=== PATIENT | male | born 1965 | race Caucasian/White ===

== ENCOUNTER 2018-01-23 18:23 | Outpatient (REF) | payer OTHER, SELFPAY ==
[2018-01-23 19:14] LABS: Uric Acid 5.3 mg/dL (3.5-7.2)
== END 2018-01-23 18:43 ==
LOC: NCHCN 18:23
PROVIDERS: Visit Provider Nurse Practitioner Family
DX: M10.9 Gout, unspecified (principal)
CPT/HCPCS: 84550

== ENCOUNTER 2020-08-21 16:47 | Outpatient (REF) | payer OTHER, SELFPAY ==
[2020-08-23 13:07] LABS: COVID-19 RT-PCR UVMMC Result Negative (Negative)
== END 2020-08-21 16:48 | disposition home or self-care (01) ==
LOC: NCHCN 16:47
PROVIDERS: Visit Provider Family Medicine
DX: Z20.822 Contact with and (suspected) exposure to COVID-19 (principal)
CPT/HCPCS: U0003

== ENCOUNTER 2021-05-04 03:51 | Outpatient (CLI) | payer OTHER, SELFPAY ==
[2021-05-04 10:22] LABS: Source Nasal/Nares
[2021-05-04 13:23] LABS: COVID-19 PCR Negative (Negative)
== END 2021-05-04 03:52 | disposition home or self-care (01) ==
LOC: LBO 03:51
PROVIDERS: Visit Provider Surgery
DX: Z20.822 Contact with and (suspected) exposure to COVID-19 (principal)
CPT/HCPCS: 87635

== ENCOUNTER 2021-05-07 08:27 | Day surgery (SDC) | payer OTHER, SELFPAY ==
--- NOTE | 2021-05-07 06:43 | COLE_ITS ---
Colonoscopy Report Date of procedure: 05/07/21 Pre-op diagnosis general: colon cancer screening Post-op diagnosis procedure note: same Procedure: Colonoscopy Surgeon: Monica Keys Anesthesia Type: General:No Airway (Alla Stokes CRNA) Estimated blood loss (mL): 0 Pathology: none sent Complications: None Disposition: same day Indications: The patient is here for Colonoscopy pre-op. He has no family history of colon cancer. He has not had any bowel habit changes. -Discussed colonoscopy bowel prep as well as the procedure. Discussed possible complications of the procedure to include bleeding, pain, perforation, missed small lesion/polyp, sore throat, aspiration and adverse reaction to the medications. Questions were answered to patient?s satisfaction. No guarantees were implied or given. Prep: Miralax/Dulcolax Procedure Start Time: 10:31 Procedure End Time: 10:47 Retraction Time: 6 minutes Findings: Normal colonoscopy Procedure Description: After informed consent was obtained the patient was taken to the procedure room and placed in a left decubitous position. Monitors were applied and a time out was done. The patients name, date of , procedure, allergies to medications and metal in their body was reviewed. The patient was then sedated. Once sedated and comfortable a rectal exam was done. External exam was normal. Internal exam revealed a normal sphincter tone and no palpable masses. The prostate felt smooth. The scope was then introduced and retro-flexed. No internal hemorrhoids, polyps or masses were identified on retro-flexion. The scope was then advanced to the cecum without difficulty. The ileocecal vlave and appendiceal orifice were i dentified. The prep was adequate. The scope was then slowly retracted over 6 minutes back into the rectum. No polyps or diverticulosis noted. The scope was removed and the patient was woken up and taken back to Same day surgery in stable condition. The patient tolerated the procedure well and there were no immediate complications. Follow up: The patient should follow up in 10 years unless they develop changes in bowel habits or other new gastrointestinal complaints.
--- NOTE | 2021-05-07 06:45 | W.PM.DSUDISC ---
Discharge Plan Disposition Patient Disposition: HOME Condition: Good Discharge Details Reason For Visit: Colonoscopy Attending Provider: Monica Keys Primary Care Provider: Elvia Cadena Home Meds and New Rx's Prescriptions: Continued cholecalciferol (vitamin D3) 25 mcg (1,000 unit) capsule 25 mcg PO DAILY RF: 0 Discontinued polyethylene glycol 3350 17 gram/dose powder 238 g PO ONCE Qty: 238 RF: 0 bisacodyl [Dulcolax (bisacodyl)] 5 mg tablet,delayed release (DR/EC) 5 mg PO ONCE Qty: 4 RF: 0 Discharge Instructions Additional Instructions: Findings: Normal large intestine Follow up: 10 years Please call if you develop: fevers >101.5 Nausea or Vomiting Abdominal pain that is not transient Rectal bleeding that is more then a tbsp A hard abdomen and inability to pass gas DAY SURGERY UNIT POST ENDOSCOPY INSTRUCTIONS Instructions for everyone who is given Anesthesia: For your safety, please do the following for the next 24 Hours: a. Do not drive or operate dangerous equipment b. Do not drink alcohol beverages or use any recreational drugs for the first 24 hours or while taking pain medications. The medications in your body may have a reaction that can be dangerous. c. Do not make any important decisions or sign any important papers 1. Generally there are no restrictions on your activity after a day or so has gone by, but you may feel a bit fatigued for a few days. 2. After you arrive home you may have a light meal and return to a normal diet as you can tolerate it without feeling sick to your stomach. 3. After surgery, you may feel pain or discomfort. This should be only transient, but if it persists please contact your doctor. 4. If there are any questions regarding the findings of your procedure, please feel free to contact your doctor. 6. If you are unable to contact your doctor with a problem, contact the hospital at [phone]. 7. Continue all your regular medications unless directed otherwise. I understand the above instructions and have no questions. Signature of Patient or Responsible Adult Escort Date/Time Name of Responsible Adult Escort Signature of Nurse Date/Time Activity:: Activity as Tolerated Diet:: As Tolerated Discharge Orders Discharge Orders: Discharge Order (Routine); Ordered 05/07/21 Ordered By: Monica Keys
[2021-05-07 08:30] VITALS: BP 151/90; PULSE 77; RESP 16; TEMP 36.6; O2SAT 99
[2021-05-07] MEDS: Lactated Ringers 1,000 ML 80 ML IV (09:03)
--- NOTE | 2021-05-07 09:18 | W.ANESPRE ---
General Info Date of Service Date Performed: 05/07/21 Height: 6 ft Weight: 100.7 kg Body Mass Index (BMI): 30.1 Surgical Procedure: Operation Date: 05/07/21 10:35 Proposed Procedures Side Surgeon p Colonoscopy Monica Keys MD Meds Allergies and Home Medications Allergies Allergy/AdvReac Type Severity Reaction Status Date / Time No Known Allergies Allergy Unverified 05/07/21 08:41 Home Medication Medication Instructions Recorded bisacodyl 5 mg tablet,delayed 5 mg PO ONCE #4 tab 04/27/21 release cholecalciferol (vitamin D3) 25 25 mcg PO DAILY 04/27/21 mcg (1,000 unit) capsule polyethylene glycol 3350 17 238 g PO ONCE #238 g 04/27/21 gram/dose oral powder Current Visit Medications: Current Medications Generic Name Dose Route Start Last Admin Trade Name Freq PRN Reason Stop Dose Admin Hyoscyamine Sulfate 0.125 mg 05/07/21 06:45 Hyoscyamine 0.125 Mg Sl/Oral/Chew SL DIRECTED PRN Ringer's Solution 1,000 mls @ 80 mls/hr 05/07/21 06:00 05/07/21 09:03 IV 06/03/21 23:59 80 mls/hr INFUSION MARYANNE Administration IV Miscellaneous Supplies 1 each 05/07/21 06:00 Iv Access IV 06/03/21 23:59 DIRECTED MARYANNE Ondansetron HCl 4 mg 05/07/21 06:45 Ondansetron 4 Mg/2 Ml Vial IVP Q4H PRN PRN Nausea / Vomiting Sodium Chloride 0 ml 05/07/21 06:00 Normal Saline Flush 10 Ml Syr IV 06/03/21 23:59 PRN PRN Sodium Chloride 0 ml 05/07/21 06:00 Normal Saline 10 Ml Vial IJ 06/03/21 23:59 DIRECTED PRN Sterile Water 0 ml 05/07/21 06:00 Water,Injection,Sterile 10 Ml Vial IJ 06/03/21 23:59 DIRECTED PRN PFSH Active Problems Active Problems: Problem Status Onset Code Depression F32.9 GERD (gastroesophageal reflux disease) K21.9 Screening for colon cancer Z12.11 Sleep apnea G47.30 Medical History Medical History Comments:: no metal, uses cpap at night, prep complete, no dentures loose teeth, etc Surgical History Surgical History (Updated 05/07/21 @ 08:39 by Radha Talley RN) History of esophagogastroduodenoscopy (EGD) [place] teeth extracted Tobacco Smoking/Tobacco Use Status: Never Alcohol Alcohol Intake: current Alcohol intake frequency: a few times a month Alcohol type: beer Substance Use Substance use: Never Substance use type: does not use Vital Signs and Lab Results Vital Signs Most Recent Vital Signs in EMR: Most Recent Vital Signs Temp Pulse Resp BP Pulse Ox 36.6 C 77 16 151/90 H 99 05/07/21 08:30 05/07/21 08:30 05/07/21 08:30 05/07/21 08:30 05/07/21 08:30 Lab Results Blood Type / Crossmatch: No Data to Display Complete Blood Count: No Data to Display Complete Metabolic Panel: No Data to Display Liver Function Panel: No Data to Display Coagulation Panel: No Data to Display Cardiac Panel: No Data to Display Arterial Blood Gas: No Data to Display Venous Blood Gas: No Data to Display Pancreas Panel: No Data to Display Thyroid Panel: No Data to Display Infectious Disease: Coronavirus (COVID-19)(PCR) Negative (Negative) 05/04/21 08:29 05/04/21 Coronavirus 2019 Source Nasal/Nares 05/04/21 08:29 05/04/21 Blood Cultures: No Data to Display Toxicology Panel: No Data to Display Anesthesia Assessment and Plan Anesthesia History Personal History: No History of Anesthesia Complications Family History: No Family History of Anesthesia Complications Exercise Tolerance Exercise Tolerance: Metabolic Equivalents>4 Pertinent Negatives Pertinent Negatives: No Symptoms of GERD (Concerned about GERD and aspiration, no symptoms at present), No Major Cardiovascular Symptoms or Complaints, No Major Pulmonary Symptoms or Complaints and No History of CVA/TIA Cardiac & Pulmonary Exam Cardiac Exam: Normal S1/S2 Heart Sounds Pulmonary Exam: Clear Bilateral Breath Sounds Implantable Cardiac Device Does patient have a Pacemaker or an ICD?: No Airway Exam Known Difficult Airway: No Mallampati Class: 2 Mouth Opening: Normal (> 3cm) Thyromental Distance: Greater than 3 cm Neck Range of Motion: Full ROM Neck Circumference: Normal Teeth Condition: Normal Dentition ASA Classification ASA Score: ASA 2 Emergency Case?: No NPO Status NPO Status: NPO Clears >2 hours, Solids >8 hours Anesthesia Plan Resuscitation Status: Full Code Anesthesia Technique: General Anesthesia Airway Planned: Natural Airway Monitors Used: Standard Monitors
[2021-05-07 09:34] VITALS: BMI 30.1
[2021-05-07 10:51] VITALS: BP 122/72; PULSE 62; RESP 16; TEMP 36.6; O2SAT 97
--- NOTE | 2021-05-07 10:59 | W.ANESPOSTOP ---
Postoperative Evaluation Date, Time and Location Date Performed: 05/07/21 Time Performed: 10:52 Patient Location: Day Surgery Unit Vital Signs Most Recent Imported Vital Signs: Most Recent Vital Signs Temp Pulse Resp BP Pulse Ox 36.6 C 62 16 122/72 97 05/07/21 10:51 05/07/21 10:51 05/07/21 10:51 05/07/21 10:51 05/07/21 10:51 Pain Score Most Recent Pain Score: Most Recent Pain Score Pain Level 0 05/07/21 10:51 Assessment Mental Status: Awake (Alert & Oriented to Patient Baseline) Airway and Respiratory Function: Patent airway with normal (patient baseline) respiratory exam Cardiovascular Function: Hemodynamically Stable Hydration Status: Adequately Hydrated Nausea & Vomiting: No Nausea or Vomiting Pain: Pt. Denies Any Pain Peripheral Nerve Block: Patient did not receive a nerve block
[2021-05-07 11:21] VITALS: BP 134/89; PULSE 62; RESP 16; TEMP 36; O2SAT 98
== END 2021-05-07 11:45 | disposition home or self-care (01) ==
PROVIDERS: PCP Nurse Practitioner Family; Visit Provider Surgery
PROC: 0DJD8ZZ Inspection of Lower Intestinal Tract, Via Natural or Artificial Opening Endoscopic (ICD-10-PCS; CPT 45378; principal; 2021-05-07 10:30)
DX: Z12.11 Encounter for screening for malignant neoplasm of colon (principal); K21.9 Gastro-esophageal reflux disease without esophagitis; F32.A Depression, unspecified
CPT/HCPCS: 45378; J2001

== ENCOUNTER 2022-01-02 09:13 | Outpatient (REF) | payer OTHER, SELFPAY ==
[2022-01-02 15:21] LABS: HCT 46.6 % (40.0-50.0); HGB 16.7 g/dL (13.5-17.5); MCH 30.7 pg (27.0-33.0); MCHC 35.8 % (32.0-36.0); MCV 86 fL (80-95); MPV 9.9 fL (8.0-11.0); Platelet Count 239 10^3/uL (130-400); RBC 5.44 10^6/uL (4.36-5.78); RDW 11.8 % (11.8-14.1); RDW-SD 36.8 fL; WBC 5.32 10^3/uL (4.4-10.8)
[2022-01-02 15:53] LABS: ALT 42 U/L (16-63); AST 27 U/L (15-37); Albumin 4.2 g/dL (3.4-5.0); Alkaline Phosphatase 71 U/L (46-116); Anion Gap 9.4 mmol/L (3-11); BUN 21 mg/dL (7-18); Bilirubin, Total 0.9 mg/dL (0.2-1.0); CO2 28.6 mmol/L (21.0-32.0); CREATININE 1.1 mg/dL (0.70-1.30); Calcium 9.2 mg/dL (8.5-10.1); Calculated LDL 104 mg/dL (<100); Chloride 103 mmol/L (98-107); Cholesterol 175 mg/dL (<200); Estimated GFR 79.77 (mL/min/1.73m2); Glucose 94 mg/dL (74-106); HDL Cholesterol 44 mg/dL (40-60); Potassium 4.9 mmol/L (3.5-5.1); Sodium 141 mmol/L (136-145); Total Protein 7.4 g/dL (6.4-8.2); Triglyceride 138 mg/dL (<150)
[2022-01-03 05:24] LABS: Vitamin D 25 Total 22.5 ng/mL (30-100)
== END 2022-01-02 09:14 | disposition home or self-care (01) ==
LOC: NCHCN 09:13
PROVIDERS: PCP Nurse Practitioner Family; Visit Provider Family Medicine
DX: Z00.00 Encounter for general adult medical examination without abnormal findings (principal); M79.18 Myalgia, other site; M10.9 Gout, unspecified
CPT/HCPCS: 80053; 80061; 82306; 84153; 85027

== ENCOUNTER 2023-01-15 11:12 | Outpatient (REF) | payer OTHER, SELFPAY ==
[2023-01-15 16:24] LABS: ALT 46 U/L (16-63); AST 28 U/L (15-37); Albumin 4.2 g/dL (3.4-5.0); Alkaline Phosphatase 79 U/L (46-116); Anion Gap 7.9 mmol/L (3-11); BUN 18 mg/dL (7-18); CO2 28.1 mmol/L (21.0-32.0); Calcium 9.5 mg/dL (8.5-10.1); Calculated LDL 112 mg/dL (<100); Chloride 102 mmol/L (98-107); Cholesterol 184 mg/dL (<200); Estimated GFR 88.88 (mL/min/1.73m2); Glucose 100 mg/dL (74-106); HDL Cholesterol 47 mg/dL (40-60); Potassium 4.2 mmol/L (3.5-5.1); Sodium 138 mmol/L (136-145); Total Protein 7.5 g/dL (6.4-8.2); Triglyceride 126 mg/dL (<150)
[2023-01-15 17:32] LABS: Bilirubin, Total 0.6 mg/dL (0.2-1.0)
== END 2023-01-15 11:13 | disposition home or self-care (01) ==
LOC: NCHCN 11:12
PROVIDERS: PCP Nurse Practitioner Family; Visit Provider Family Medicine
DX: Z00.00 Encounter for general adult medical examination without abnormal findings (principal); Z13.220 Encounter for screening for lipoid disorders; Z13.228 Encounter for screening for other metabolic disorders
CPT/HCPCS: 80053; 80061

== ENCOUNTER 2023-09-26 22:54 | Outpatient (REF) | payer OTHER, SELFPAY ==
[2023-09-26 21:13] LABS: Anion Gap 8.6 mmol/L (3-11); BUN 16 mg/dL (7-18); CO2 29.4 mmol/L (21.0-32.0); Calcium 9.6 mg/dL (8.5-10.1); Chloride 104 mmol/L (98-107); Estimated GFR 88.88 (mL/min/1.73m2); Glucose 101 mg/dL (74-106); Potassium 4.3 mmol/L (3.5-5.1); Sodium 142 mmol/L (136-145)
[2023-09-29 09:20] LABS: PSA, Diagnostic 2.9 ng/mL (<=3.5)
== END 2023-09-26 22:55 | disposition home or self-care (01) ==
LOC: NCHCN 22:54
PROVIDERS: PCP Nurse Practitioner Family; Visit Provider Family Medicine
DX: R35.0 Frequency of micturition (principal); B37.9 Candidiasis, unspecified
CPT/HCPCS: 80048; 84153; 87086

== ENCOUNTER 2023-10-20 09:09 | Outpatient (CLI) | payer OTHER, SELFPAY ==
--- NOTE | 2023-10-20 08:30 | DI.RAD_ITS ---
Exam(s) XR WRIST LT COMP NAVICULAR EXAM: XR WRIST LT COMP NAVICULAR CLINICAL HISTORY: left hand pain. TECHNIQUE: 2D digital imaging was performed of the left wrist. Four images were obtained. Scaphoid , PA, oblique and lateral views were obtained. COMPARISON: No exams were available for comparison FINDINGS: BONES: No acute fracture is present. No bony destructive lesion is seen. JOINTS: The carpal bones are normally aligned. SOFT TISSUE: Normal. IMPRESSION: Unremarkable radiographs of the left wrist. DATA REPOSITORY: RADIATION DOSE DELIVERED:
--- NOTE | 2023-10-20 08:30 | DI.RAD_ITS ---
Exam(s) XR KNEE RT 4V AP,LAT,JEANINE,PAT EXAM: XR KNEE RT 4V AP,LAT,JEANINE,PAT CLINICAL HISTORY: right knee injury. TECHNIQUE: 2D digital imaging was performed. COMPARISON: No exams were available for comparison FINDINGS: Four views. No evidence of fracture. Small joint effusion noted. Bone density normal. No osseous lesions. No osteochondral defects. No obvious degenerative changes. IMPRESSION: No acute osseous findings. Small joint effusion noted. This may signify internal derangement. DATA REPOSITORY: RADIATION DOSE DELIVERED:
== END 2023-10-20 09:10 | disposition home or self-care (01) ==
LOC: DIORS 09:10
PROVIDERS: PCP Nurse Practitioner Family; Referring Provider Nurse Practitioner Family; Visit Provider Physician Assistant
DX: S89.91XA Unspecified injury of right lower leg, initial encounter (principal); M79.642 Pain in left hand
CPT/HCPCS: 73110; 73564

== ENCOUNTER 2023-12-12 00:06 | Outpatient (CLI) | payer OTHER, SELFPAY ==
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
--- OUTSIDE RECORDS SUMMARY | 2023-12-12 00:13 | XMS_ITS | Encounter Summary ---
Author Organization [facility] Address [address] [place] [address] Care Team Providers Care Butter Printer Name Role Phone Unavailable Primary Care Provider Unavailabl e Encounter Details Date Type Department Care Team (Late st Contact Info) Description 07/29/2001 Results Only [facility] [address] [place] [address] Art Butcher MD [address] [place] [phone] Social History Tobacco Use Types Packs/Day Years Used Date Smoking Tobacco: Never Assessed Sex and Gender Information Value Date Recorded Sex Assigned at Not on file Gender Identity Not on file Sexual Orientation Not on file documented as of this encounter Plan of Treatment Not on file documented as of this encounter Procedures Procedure Name Priority Date/Time Associated Diagnosis Comments SURGICAL PATHOLOGY Routine 07/29/2001 0:00 EDT documented in this encounter Results * SURGICAL PATHOLOGY (07/29/2001 0:00 EDT) Pathology Report: SURGICAL PATHOLOGY REPORT Reports generated via electronic interface contain original data; however they are lacking the format of the original report. Caution should be taken when reading/interpretin g unformatted reports. Name: ? CORY MERCADO ? Accession #: ? [id number] ? : ? 1965 (Age: 35) ??M ? Collect Date: ? 07/29/2001 ? Location: ? [facility] ? Receive Date: ? 07/30/2001 ? Provider: JESSICA BUTCHER MD Copy to: LAINE PERALTA MD ? Final Pathologic Diagnosis: ? Gastroesophageal junction, biopsies: - Gastroesophageal junction mucosa with changes consistent with reflux esophagitis. Document reviewed and electronically signed by: Apple Barclay MD Report ??Date: 07/31/2001 16:47 By the signature above, the attending physician certifies that he/she has personally conducted a gross and/or microscopic examination of the described specimens and rendered or confirmed the above diagnosis. Specimen(s) Received: ? Bx G-E junction Clinical History: ? Dx heartburn, reflux Gross Description: ? Received in Hollande' s fixative labelled [place] and GE junction bx are three, poon-newberry, irregular, soft tissue fragments ranging from 0.1 x 0.1 x 0.1 cm to 0.5 x 0.2 x 0.1 cm. ??The specimen is entirely submitted in one cassette. ??(Annamarie Em)/dtl End of Report [facility] 07/29/2001 07/30/2001 9:0 3 EDT Art Butcher MD PATHOLOGY ORDERABLES [facility] [address] [place] [address] documented in this encounter Visit Diagnoses Not on filedocumented in this encounter
--- OUTSIDE RECORDS SUMMARY | 2023-12-12 00:13 | XMS_ITS | Clinical Summary ---
Author Organization [facility] Address [address] [place] [address] Care Team Providers Care Human Resource Professional Name Role Phone Yadira Martin MD Primary Care Provider Encounters Date Type Department Care Team Description 09/27/2023 Lab Requisition [facility] Pathology & Laboratory Medicine - [facility] [address] [place] [address] Outr Resulting Lab, Provider from Last 3 Months Social History Tobacco Use Types Packs/Day Years Used Date Smoking Tobacco: Never Assessed Sex and Gender Information Value Date Recorded Sex Assigned at Not on file Gender Identity Not on file Sexual Orientation Not on file Plan of Treatment Health Maintenance Due Date Last Done Comments Hepatitis C Screen 1965 Hepatitis B Vaccine (1 of 3 - 19+ 3-dose series) 12/27 COVID-19 Vaccine ( season) 2022 Procedures Procedure Name Priority Date/Time Associated Diagnosis Comments PSA TOTAL, DIAGNOSTIC Routine 09/26/2023 15:00 EDT from Last 3 Months Results * PSA TOTAL, DIAGNOSTIC (09/26/2023 15:00 EDT) PSA 2.9 <=3.5 ng/mL 09/29/2023 9:15 EDT [facility] Blood VENOUS BLOOD / Unknown 09/26/2023 15:00 EDT 09/27/2023 21:56 EDT Narrative [facility] - 09/29/2023 9:15 EDT NOTE: Serum PSA concentration should not be interpreted as absolute evidence for the presence or absence of malignant disease. Assayed on Siemens ADVIA Centaur XPT using chemiluminescent technology.??Values obtained by using different assay methods cannot be used interchangeably. Provider Outr Resulting Lab CHEMISTRY & BLOOD GAS ORDERABLES [facility] [address] [place] [address] from Last 3 Months Care Teams Human Resource Professional Relationship Specialty Start Date End Date Yadira Martin MD [address] [place] [phone] PCP - General 08/13/13
--- OUTSIDE RECORDS SUMMARY | 2023-12-12 00:13 | XMS_ITS | Encounter Summary ---
Author Organization [facility] Address [address] [place] [address] Care Team Providers Care Three Knife Trimmer Name Role Phone Unavailable Primary Care Provider Unavailabl e Encounter Details Date Type Department Care Team (Late st Contact Info) Description 08/10/2013 Results Only [facility] [phone] Harry Mack MD [address] [facility] [address] [place] [address] Social History Tobacco Use Types Packs/Day Years Used Date Smoking Tobacco: Never Assessed Sex and Gender Information Value Date Recorded Sex Assigned at Not on file Gender Identity Not on file Sexual Orientation Not on file documented as of this encounter Plan of Treatment Not on file documented as of this encounter Procedures Procedure Name Priority Date/Time Associated Diagnosis Comments SURGICAL PATHOLOGY Routine 08/10/2013 15 :47 EDT documented in this encounter Results * SURGICAL PATHOLOGY (08/10/2013 15:47 EDT) Pathology Report: SURGICAL PATHOLOGY REPORT Reports generated via electronic interface contain original data; however they are lacking the format of the original report. Caution should be taken when reading/interpretin g unformatted reports. Name: ? CORY MERCADO ? Accession #: ? [id number] ? : ? 1965 (Age: 47) ??M ? Collect Date: ? 08/10/2013 ? Location: ? [facility] ? Receive Date: ? 08/11/2013 ? Provider: MATTHIEU MACK MD Copy to: EUGENIA PERALTA MD ? Final Pathologic Diagnosis: A. DUODENUM, SECOND PORTION, BIOPSY: - ??No specific pathologic features. B. STOMACH, ANTRUM, BIOPSY: - ??Fundic gland polyp. C. STOMACH, BODY, BIOPSY: - ??No specific pathologic features. D. ESOPHAGUS, GASTROESOPHAGEAL JUNCTION, BIOPSY: - ??Squamous and gastric mucosa with mild reactive changes, consistent with reflux. - ??No intestinal metaplasia or dysplasia identified. Document reviewed and electronically signed by: AMEE KHAN MD Report ??Date: 08/12/2013 13:50 By the signature above, the attending physician certifies that he/she has personally conducted a gross and/or microscopic examination of the described specimens and rendered or confirmed the above diagnosis. Specimen(s) Received: A. ??2nd portion bx B. ??Antrum bx C. ??Gastric body bx D. ??GE junction bx Clinical History: Diarrhea, GERD x20 years; R/O celiac, H. pylori, Green's; clinical diagnosis code: ??787.3, 536.8, 787.91 Gross Description: A. ?Received in formalin labelled with proper patient identification (initials H, E) and 2nd portion bx are two pink-poon tissues (0.1 x 0.1 x 0.1 cm and 0.3 x 0.3 x 0.2 cm). Entirely submitted in A1. B. ?Received in formalin labelled with proper patient identification (initials H, E) and antrum bx is a pink-poon polypoid tissue (0.6 x 0.5 x 0.5 cm) as well as two pink-poon tissue fragments (0.2 x 0.2 x 0.2 cm and 0.5 x 0.1 x 0.1 cm). The margin of the polypoid piece is inked blue. ??This piece is bisected and entirely submitted in B1 and the remaining fragments are submitted in B2. C. ?Received in formalin labelled with proper patient identification (initials H, E) and gastric body bx are two pink-poon tissues (0.3 x 0.3 x 0.1 cm and 1.0 x 0.2 x 0.1 cm). Entirely submitted in C1. D. ?Received in formalin labelled with proper patient identification (initials H, E) and GE junction bx is a single poon-white tissue fragment (0.5 x 0.2 x 0.1 cm). Submitted intact in D1. Anayeli Pantoja 08/11/2013 04:24 PM End of Report [facility] 08/10/2013 15:4 7 EDT 08/11/2013 15:47 EDT Harry Mack MD PATHOLOGY ORDERABLES Performing Organization Address City/State/[facility] Co de Phone Number [facility] [address] [place] [address] documented in this encounter Visit Diagnoses Not on filedocumented in this encounter
--- OUTSIDE RECORDS SUMMARY | 2023-12-12 00:13 | XMS_ITS | Encounter Summary ---
Author Organization [facility] Address [address] [place] [address] Care Team Providers Care Planning Intern Name Role Phone Yadira Martin MD Primary Care Provider [phone] Encounter Details Date Type Department Care Team (Late st Contact Info) Description 09/27/2023 Lab Requisition [facility] Pathology & Laboratory Medicine - [facility] [address] [place], [place] [id number] Outr Resulting Lab, Provider Social History Tobacco Use Types Packs/Day Years [...] PSA TOTAL, DIAGNOSTIC Routine 09/26/2023 15:00 EDT documented in this encounter Results * PSA TOTAL, DIAGNOSTIC (09/26/2023 15:00 EDT) PSA 2.9 <=3.5 ng/mL 09/29/2023 9:15 EDT [facility] Blood VENOUS BLOOD / Unknown 09/26/2023 15:00 EDT 09/27/2023 21:56 EDT Narrative [facility] - 09/29/2023 9:15 EDT NOTE: Serum PSA concentration should not be interpreted as absolute evidence for the presence or absence of malignant disease. Assayed on Siemens ADVIA Avisenaaur XPT using chemiluminescent technology.??Values obtained by using different assay methods cannot be used interchangeably. Provider Outr Resulting Lab CHEMISTRY & BLOOD GAS ORDERABLES [facility] [address] [place] [address] documented in this encounter Visit Diagnoses Not on filedocumented in this encounter Care Teams Planning Intern Relationship Specialty Start Date End Date Yadira Martin MD [address] [place] [address] PCP - General 08/13/13 documented as of this encounter
--- OUTSIDE RECORDS SUMMARY | 2023-12-12 00:13 | XMS_ITS | Encounter Summary ---
Author Organization [facility] Address [address] [place] [address] Care Team Providers Care Refinery Operator Coking Name Role Phone Yadira Martin MD Primary Care Provider Encounter Details Date Type Department Care Team (Late st Contact Info) Description 08/22/2020 Lab Requisition [facility] Pathology & Laboratory Medicine - [facility] [address], [place] [phone] Outr Resulting Lab, Provider Social History Tobacco [...] Procedure Name Priority Date/Time Associated Diagnosis Comments ZZCOVID-19 TEST [facility] PCR Today 08/21/2020 14:20 EDT COVID-19 TESTING Routine 08/21/2020 14:2 0 EDT documented in this encounter Results * COVID-19 TEST [facility] PCR (08/21/2020 14:20 EDT) Swab ENTIRE NASOPHARYNX / Unknown 08/21/2020 14:20 EDT 08/22/2020 16:03 EDT Provider Outr Resulting Lab MICROBIOLOGY - GENERAL ORDERABLES [facility] [address] [place] [address] * COVID-19 TESTING (08/21/2020 14:20 EDT) COVID-19 rt-PCR Result Negative Negative 08/23/2020 13:03 EDT [facility] Comment: This test has not been FDA cleared or approved. This test has been authorized by FDA under an EUA for use by authorized laboratories. This test has been authorized only for detection of nucleic acid from 2019-nCoV, not for any other viruses or pathogens. This test is only authorized for the duration of the declaration that circumstances exist justifying the authorization of emergency use of in vitro diagnostic tests for detection and/or diagnosis of 2019-nCoV under section 564(b)(1) of Act, 21 U.S.C ?? 360bbb-3(b) (1), unless the authorization is terminated or revoked sooner. Negative results do not preclude 2019-nCoV infection and should not be used as the sole basis for treatment or other patient management decisions. Negative results must be combined with clinical observations, patient history, and epidemiological information. Testing was performed using the kate SARS-CoV-2 assay ([employer] on the Kate 6800 System Performing Lab Kate [address] [facility] 08/23/2020 13:03 EDT [facility] Swab 08/21/2020 14:2 0 EDT 08/22/2020 16:03 EDT Provider Outr Resulting Lab MICROBIOLOGY - GENERAL ORDERABLES [facility] [address] [place] [address] documented in this encounter Visit Diagnoses Not on filedocumented in this encounter Care Teams Refinery Operator Coking Relationship Specialty Start Date End Date Yadira Martin MD [address] [place] [phone] PCP - General 08/13/13 documented as of this encounter
--- OUTSIDE RECORDS SUMMARY | 2023-12-12 00:13 | XMS_ITS | Continuity of Care Document ---
Author Organization [place] - [facility], [facility], [facility] Address [address] [place] [address] Assessment Encounter Date Assessment Date Assessment LastModified by Organization Details LastModified Time 09/26/2023 09/26/2023 Imer is a 57yo M [...] devoted to today's encounter, including both the dnud-em-lxmp time with the patient and/or family/caregiver and amr-kqru-xb-face time I personally spent is 35 minutes. [email or web address] Not available 09/26/2023 16:04:39 Plan of Treatment Reminders Order Date Submit Date Provider Last Modified By Organization Details Last Modified Time Details Appointments Acute 20 2023 10:00A M Not available Not available Not available Annual Wellness Exam 30 2023 11:00A M Not available Not available Not available Lab urinalysi s, dipstick 2023 024 [email or web address] [facility], [address] [place] [address], [id number], 09/26/2023 15:47:51 culture, urine + sensitivi ty - Collected in Office, Clean Catch, cmp 2023 024 [facility] (Registration ), [address] [place] [address] [place], [address], 09/30/2023 16:27:13 PSA, serum or plasma - Drawn in Office, Left AC, cp, 1 YELLOW 2023 024 [facility] (Registration ), [address] [place] [address] [place], [address], 09/29/2023 09:23:39 BMP, serum or plasma 2023 024 [facility] (Registration ), [address] [place] [address] [place], [address], 09/30/2023 16:26:59 Referral None recorded. Procedures None recorded. Surgeries None recorded. Imaging None recorded. Medication Orders tamsulosi n 0.4 mg capsule 2023 024 [facility] [place], [address], 09/26/2023 15:47:48 Patient TargetsNo targets recorded. Patient InstructionsNo instructions recorded. Reason for Referral Orthopedic Surgeon Referral for Pain of left hand when visit is complete, please send us the visit notes Referring Physician: Tierra Vinson, Family Medicine, Encounter Date: 08/04/2023 Results Created Date Observation Date Name Description Value Unit Range Abnormal Flag Note LastModifiedBy Organization Detail LastModifiedTime 09/26/1909/26/2023 urina lysis , dipst ick Leukocytes Modera te Not Available [address], [address], 09/26/2023 14:38:45 09/26/19 24 09/26/2023 urina lysis , dipst ick Nitrite negati ve Not Available [address], [address], 09/26/2023 14:38:45 09/26/19 24 09/26/2023 urina lysis , dipst ick Urobilinogen .2 Not Available [address], [address], 09/26/2023 14:38:45 09/26/19 24 09/26/2023 urina lysis , dipst ick Protein Trace Not Available [address], [address], 09/26/2023 14:38:45 09/26/19 24 09/26/2023 urina lysis , dipst ick pH 8.0 Not Available [address], [address], 09/26/2023 14:38:45 09/26/19 24 09/26/2023 urina lysis , dipst ick Blood Hemoly zed: Trace Not Available [address], [address], 09/26/2023 14:38:45 09/26/19 24 09/26/2023 urina lysis , dipst ick Specific [place] 1.010 Not Available [address], [address], 09/26/2023 14:38:45 09/26/19 24 09/26/2023 urina lysis , dipst ick Ketone Negati ve Not Available [address], [address], 09/26/2023 14:38:45 09/26/19 24 09/26/2023 urina lysis , dipst ick Bilirubin Negati ve Not Available [address], [address], 09/26/2023 14:38:45 09/26/19 24 09/26/2023 urina lysis , dipst ick Glucose Negati ve Not Available [address], [address], 09/26/2023 14:38:45 09/26/19 24 09/26/2023 urina lysis , dipst ick Appearance Clear Not Available [address], [address], 09/26/2023 14:38:45 09/26/19 24 09/26/2023 urina lysis , dipst ick Color Yellow Not Available [address], [address], 09/26/2023 14:38:45 10/03/19 24 10/03/2023 US, Jeanette borrero Name: Tonia Santamaria Unit #: [id number] Loc: DI Orderi ng Provid er: Tierra Vinson Acceulalio t #: [id number] Status : REG CLI Primar y Care Provid er: Bethany Villegas Date of Exam: Sex: [...] size upper normal . DATA REPOSI TORY: Ordere d By: Tierra Vinson CC: ------ ------ ------ ------ ------ ------ [...] at the addres s above. Thank- you. [facility] (Radiology) [facility], [place], [address], 10/03/2023 15:43:56 10/20/19 24 10/20/2023 x-ray imagi ng sai borrero Name: Tonia Santamaria Unit #: [id number] Loc: DIORS Orderi ng Provid er: Anayeli Momin t #: [id number] Status : REG CLI Primar y Care Provid er: Leonela Villegash peter Date of Exam: 05/14 Sex: M Admiss [...] : The carpal bones are normal ly aligne d. SOFT TISSUE : Normal . IMPRES HEMA: Unrema rkable radiog raphs of the left wrist. DATA REPOSI TORY: RADIAT ION DOSE DELIVE RED: Ordere d By: Anayeli Momin CC: ------ ------ ------ ------ ------ ------ ------ ------ ------ ------ ------ ------ - Dictat ed By: Sang Harris M.D. 1733 173 Transc ribed By: Sang Harris 173 [...] the addres s above. Thank- you. [email or web address] [facility] [address], [place], [address] 10/21/2023 05:46:43 10/20/19 24 10/20/2023 x-ray imagi ng repor t Patirobert t Name: Tonia Santamaria Unit #: [id number] Loc: DIORS Orderi ng Provid er: Anayeli Momin Acceulalio t #: [id number] Status : REG CLI Primar [...] effusi on noted. This may signif y event marketing intern al henrry tovar. DATA REPOSI TORY: RADIAT ION DOSE DELIVE RED: Ordere d By: Anayeli Momin CC: ------ ------ ------ ------ ------ ------ ------ ------ ------ ------ ------ ------ - Dictat ed By: Milton Smith M.D. 1822 Transc ribed By: Sarah HAMMOND,Oscar gerber 1822 This is privil eged, confid ential [...] the addres s above. Thank- you. [email or web address] [facility] [address], [place], [address] 10/21/2023 05:46:43 Result Notes None recorded. Problems Name Problem SNOMED Code Status Onset Date Resolution Date Notes Provider Name and Address Organization Details Recorded Time Gastroes ophageal reflux disease without esophagi tis 947406674 Active 201101/10/20 22 - Comments only - Tierra Vinson MD - Patient has reflux disease that is under good control for the most part. He knows that if he eats too late at night that he is going to have a problem. He eats spicy foods during the day so he has less issues. He is currentl y not taking any medicati ons for this. Problem Code: K21.9; Problem Code Type: ICD-10; Not Available [facility] 3 04:01:45 Obstruct jacey sleep apnea syndrome 21038765 Active 201401/10/20 22 - Comments only - Tierra Vinson MD - Patient reports that he wears his CPAP he has a prescrip tion to get it renewed. He has not done so as of yet. He is trying to decide whether he is going to submit this through his insuranc e or if he simply is going to pay for it out right. If he goes to the medical supply place and the prescrip tion and has outdated he will simply call us so that we can send in a new 1. Problem Code: G47.33; Problem Code Type: ICD-10; Not Available [facility] 3 04:01:45 Muscle pain 85801829 Active 201611/02/19 17 - Comments only - Cara Nunez delfina GLASS GRINDER - - With erythema tous lesion, possible recent tick exposure , and fatigue and malaise. Given these symptoms and that false negative would be common on testing, I am going to treat him for lyme disease. Prescrib ing 21 day course of doxyxycl ine. Advised him on s/e includin g GI upset and photosen sitivity . Advised him to f/u for lack of improvem ent or new/wors ening symptoms . The patient verbaliz ed understa nding and agreemen t to this care plan. Problem Code: M79.1; Problem Code Type: ICD-10; Not Available [facility] 3 04:01:45 Localize d eruption of skin 767796888 Completed 201611/15/2016 Problem Code: R21; Problem Code Type: ICD-10; Not Available [facility] 3 04:01:45 Gout 76283179 Active 2017 Problem Code: M10.9; Problem Code Type: ICD-10; Not Available [facility] 3 04:01:45 Adult health examinat ion Active 202101/10/20 22 - Comments only - Tierra Vinson MD - Imer Mercado is a healthy active 56-year- old gentlema n who is on no medicati ons. He sees his eye doctor and dentist as recommen ded. He eats a healthy diet and is physical ly active. He is a non-smok er and uses alcohol rarely. We did fasting blood work prior to this appointm ent and we went over those results. They were all within normal limits. His choleste rol profile is excellen t. His vitamin D level is low although . He is going to need to take his suppleme nt on a more regular basis. He may need to actually increase it but we will have him take it every day for a year and see how he does. Problem Code: Z00.00; Problem Code Type: ICD-10; Not Available [facility] 3 04:01:46 Vitamin D deficien cy 82115078 Active 2021 Problem Code: E55.9; Problem Code Type: ICD-10; Not Available [facility] 3 04:01:46 Exposure to communic able disease Completed 202001/09/2022 Problem Code: Z20.9; Problem Code Type: ICD-10; Not Available [facility] 3 04:01:51 Screenin g for disorder Completed 201501/09/2022 Problem Code: Z13.9; Problem Code Type: ICD-10; Not Available [facility] 3 04:01:56 Gastroes ophageal reflux disease 513805680 Completed 201101/15/2023 10/25/19 15 - Deterior ated - Yadira Martin MD - trial of increasi ng nexium to 40mg each AM, at least 1/2 hour prior to eating, follow reflux precauti ons follow-u p 2 months Not Available [facility] 3 04:01:57 Screenin g for malignan t neoplasm of colon Completed 201901/09/2022 Problem Code: Z12.11; Problem Code Type: ICD-10; Not Available [facility] 3 04:01:58 Pain of left hand 39755101204 9103 Active [address], [place], [address] , [facility] 4 16:09:32 Increase d frequenc y of urinatio n 758550469 Active [address], [place], [address] , [facility] 4 16:05:13 Abnormal urine 066460237 Active [address], [place], [address] , [facility] 4 16:44:03 Problem Notes None recorded. Medical Equipment None Reported. [...] Not Available Not Available Nexium 20 mg capsule,oha yed release Take 1 by mouth daily [...] Updated DateTime 4 180.848 cm 30.8 kg/m2 136622. 51 g 98 [degF] 97 % 97 % 87 /min 16 /min 138 mm[Hg] 78 mm[Hg] Pratibha Price RN [place] - [facility] 4 14:17:37 Social History None recorded. Functional Status [...] Recorded Time Tdap 02/19/2021 completed Not Available [facility] 05:56:43 COVID-19, mRNA, LNP-S, PF, 100 mcg/0.5mL dose or 50 mcg/0.25mL dose 10/12/2020 completed Not Available [facility] 02/28/2023 05:56:47 COVID-19, mRNA, LNP-S, PF, 100 mcg/0.5mL dose or 50 mcg/0.25mL dose 11/09/2020 completed Not Available [facility] 02/28/2023 05:56:47 Past Encounters Encounter ID Performer Location Encounter Start Date Encounter Closed Date Diagnosis/Indication Diagnosis SNOMED-CT Code [id number] TIERRA VINSON MD [address] [address] 09/26/2023 14:02:46 09/26/2023 15:11:47 Increased frequency of urination 626238861 Health Concerns Section Related Observation LastModified by Organization Detai ls LastModified Time None Recorded Concern Status LastModified by Organization Details LastModified Time None Recorded Payers Encounter Date Sequence Insurance Name Policy Number Policy Blair Covered Member ID Blair Member ID Guarantor Name 09/26/[address] [facility] [id number] Imer Mercado [id number] Imer [place] Notes Date Note Type Note Provider Name and Address Organization Details Recorded Time 09/26/2023 text/html HPI Notes: Imer is a [...] No nausea, vomiting, diarrhea or constipation. TIERRA VINSON MD [address], [place], [address], [facility]. 09/26/2023 16:05:37
--- OUTSIDE RECORDS SUMMARY | 2023-12-12 00:13 | XMS_ITS | Encounter Summary ---
Author Organization [facility] Address [address] [place] [address] Care Team Providers Care Immigration Patrol Inspector Name Role Phone Unavailable Primary Care Provider Unavailabl e Encounter Details Date Type Department Care Team (Latest Contact Info) Description 08/10/2013 11:00 EDT - 08/10/2013 23:59 EDT Hospital Encounter [address] [address] Unknown, Provider, Discharge Disposition: Home or Self Care Social History Tobacco Use Types Packs/Day Years Used Date Smoking Tobacco: Never Assessed Sex and Gender Information Value Date Recorded Sex Assigned at Not on file Gender Identity Not on file Sexual Orientation Not on file documented as of this encounter Discharge Disposition Disposition Code Departure Means Destination Home or Self Half-Way documented in this encounter Plan of Treatment Not on file documented as of this encounter Visit Diagnoses Not on filedocumented in this encounter
--- OUTSIDE RECORDS SUMMARY | 2023-12-12 00:13 | XMS_ITS | Encounter Summary ---
Author Organization [facility] Address [address] [place] [address] Care Team Providers Care Salesperson Jewelry Name Role Phone Yadira Martin MD Primary Care Provider [phone] Encounter Details Date Type Department Care Team (Late st Contact Info) Description 01/03/2022 Lab Requisition [facility] Pathology & Laboratory Medicine - [address] [address] Outr Resulting Lab, Provider Social History Tobacco [...] Associated Diagnosis Comments PSA TOTAL, DIAGNOSTIC Routine 01/02/2022 8:25 EDT documented in this encounter Results * PSA TOTAL, DIAGNOSTIC (01/02/2022 8:25 EDT) PSA 3.0 <=3.5 ng/mL 01/03/2022 19:40 EDT [facility] Blood VENOUS BLOOD / Unknown 01/02/2022 8:25 EDT 01/03/2022 17:21 EDT Narrative [facility] - 01/03/2022 19:40 EDT NOTE: Serum PSA concentration should not be interpreted as absolute evidence for the presence or absence of malignant disease. Assayed on Siemens [employer] XPT using chemiluminescent technology.??Values obtained by using different assay methods cannot be used interchangeably. Provider Outr Resulting Lab CHEMISTRY & BLOOD GAS ORDERABLES [facility] [address] [place] [address] documented in this encounter Visit Diagnoses Not on filedocumented in this encounter Care Teams Salesperson Jewelry Relationship Specialty Start Date End Date Yadira Martin MD [address] [place] [phone] PCP - General 08/13/13 documented as of this encounter
--- OUTSIDE RECORDS SUMMARY | 2023-12-12 00:13 | XMS_ITS | Referral Summary ---
Author Organization [facility] Address [address] [place] [address] Care Team Providers Care Interactive Digital Media Specialist Name Role Phone Yadira Martin MD Primary Care Provider [phone] Encounters Date Type Department Care Team Description 09/27/2023 Lab Requisition [facility] Pathology & Laboratory Medicine - [facility] [address] [place] [address] Outr Resulting Lab, Provider from Last 3 Months Social History Tobacco Use Types Packs/Day Years Used Date Smoking Tobacco: Never Assessed Sex and Gender Information Value Date Recorded Sex Assigned at Not on file Gender Identity Not on file Sexual Orientation Not on file Plan of Treatment Not on file Procedures Procedure Name Priority Date/Time Associated Diagnosis Comments PSA TOTAL, DIAGNOSTIC Routine 09/26/2023 15:00 EDT from Last 3 Months Results * PSA TOTAL, DIAGNOSTIC (09/26/2023 15:00 EDT) PSA 2.9 <=3.5 ng/mL 09/29/2023 9:15 EDT [facility] Blood VENOUS BLOOD / Unknown 09/26/2023 15:00 EDT 09/27/2023 21:56 EDT Narrative [facility] - 09/29/2023 9:15 EDT NOTE: Serum PSA concentration should not be interpreted as absolute evidence for the presence or absence of malignant disease. Assayed on Siemens [employer] XPT using chemiluminescent technology.??Values obtained by using different assay methods cannot be used interchangeably. Provider Outr Resulting Lab CHEMISTRY & BLOOD GAS ORDERABLES [facility] [address] [place] [address] from Last 3 Months Care Teams Interactive Digital Media Specialist Relationship Specialty Start Date End Date Yadira Martin MD [address] [place] [phone] PCP - General 08/13/13
--- NOTE | 2023-12-12 08:00 | DI.MRI_ITS ---
Exam(s) MR UPPER JOINT LT WO EXAM: MR UPPER JOINT LT WO CLINICAL HISTORY: possible small fX, bony contusion vs. ligament injury lt wrist, s69.92xa. TECHNIQUE: Multiplanar multisequence MRI was performed. COMPARISON: November 11 FINDINGS: BONES: There is no fracture or contusion pattern. JOINTS: Small amount of fluid versus synovial cyst or ganglion seen at the volar, ulnar aspect of the wrist between the piece of form and hamate. Additional fluid versus synovial cyst or ganglion seen at the volar aspect of the radial styloid. The carpal alignment is normal. TENDONS: Flexors: Unremarkable. Extensors: Unremarkable. MUSCLES: Unremarkable. MEDIAN NERVE: Unremarkable on this noncontrast examination. SOFT TISSUES: Unremarkable. LIGAMENTS: Unremarkable. TRIANGULAR FIBROCARTILAGE: Unremarkable. IMPRESSION: No evidence of fracture or bone contusion. Small synovial cysts versus ganglia at the volar aspect of the radius, at both the radial and ulnar a spects. DATA REPOSITORY:
== END 2023-12-12 00:26 ==
LOC: DI 00:06
PROVIDERS: PCP Nurse Practitioner Family; Visit Provider Student in an Organized Health Care Education/Training Program
DX: S69.92XA Unspecified injury of left wrist, hand and finger(s), initial encounter (principal); X58.XXXA Exposure to other specified factors, initial encounter
CPT/HCPCS: 73221

== ENCOUNTER 2024-02-11 12:17 | Outpatient (REF) | payer OTHER, SELFPAY ==
--- OUTSIDE RECORDS SUMMARY | 2024-02-11 12:20 | XMS_ITS | Clinical Summary ---
Author Organization [facility] [place] [address] Care Team Providers Care Building Services Engineer Name Role Phone Yadira Martin MD Primary Care Provider [phone] Encounters Date Type Department Care Team Description 12/25/2023 Transcribe Orders eDH Incoming Referrals [phone] Tierra Vinson MD Varicose veins of right lower extremity with other complications from Last 3 Months Social History Tobacco Use Types Packs/Day Years Used Date Smoking Tobacco: Never Assessed Sex and Gender Information Value Date Recorded Sex Assigned at Not on file Gender Identity Not on file Sexual Orientation Not on file Plan of Treatment Upcoming Encounters Date Type Department Care Team (Late st Contact Info) Description 02/13/2024 8:30 AM EDT Office Visit [place] [address] Gloria De Souza, [facility] [place] [address] Health Maintenance Due Date Last Done Comments CT Colonography 1967 Colonoscopy 1967 Colorectal Cancer Screening 1967 FIT DNA 1967 FIT 1967 Sigmoidoscopy (10 year) with FIT yearly 1967 Sigmoidoscopy 1967 HIV screen 12/27/1985 Hepatitis C Screening 12/27/1985 Lipid Screening 12/27/1985 Hepatitis B vaccine (0-59 yrs) (1) 12/27/1986 Tetanus/Diphtheria/Pertussis Vaccines (1 - Tdap) 12/27 Zoster vaccine (1 of 2) 12/27/2017 Advance Directive 12/27/2022 Covid-19 Vaccine (1 - 2022-24 season) 2023 Influenza (Flu) vaccine (1 o f 1 - Influenza standard series) 12/21/2023 Care Teams Building Services Engineer Relationship Specialty Start Date End Date Yadira Martin MD [address] [place], [place] [id number] PCP - General 03/13/10
--- OUTSIDE RECORDS SUMMARY | 2024-02-11 12:20 | XMS_ITS | Encounter Summary ---
Author Organization [facility] Address [facility] [place] [address] Care Team Providers Care Combat Control Manager Name Role Phone Yadira Martin MD Primary Care Provider [phone] Reason for Referral * Consultation (Routine) - Authorized Specialty Diagnoses / Procedures Referred By Subhash borrero Referred To Contact Vascular Surgery Diagnoses Varicose veins of right lower extremity with other complications Tierra Vinson MD [address] [place] [address] [facility] [address] [place] [address] Referral ID Status Reason Start Date Expiration Date Visits Requested Visits Authorized [id number] Authorized Consult, Test & Treat 12/25/2023 12/24/2024 1 1 Encounter Details Date Type Department Care Team (Latest Contact Info) Description 12/25/2023 Transcribe Orders eDH Incoming Referrals [phone] Tierra Vinson MD [address] [place] [address] Varicose veins of right lower extremity with other complications Social History Tobacco Use Types Packs/Day Years Used Date Smoking Tobacco: Never Assessed Sex and Gender Information Value Date Recorded Sex Assigned at Not on file Gender Identity Not on file Sexual Orientation Not on file documented as of this encounter Plan of Treatment Upcoming Encounters Date Type Department Care Team (Late st Contact Info) Description 02/13/2024 8:30 AM EDT Office Visit [place] [address] Gloria De Souza, METAL RIVET MACHINE OPERATOR [facility] [place] [address] Scheduled Referrals Name Type Priority Associated Diagnoses Orde r Schedule Referral to Vascular Surgery Outpatient Referral Routine Varicose veins of right lower extremity with other complications Ordered: 12/25/2023 documented as of this encounter Visit Diagnoses Diagnosis Varicose veins of right lower extremity with other complications documented in this encounter Care Teams Combat Control Manager Relationship Specialty Start Date End Date Yadira Martin MD [address] [place] [address] PCP - General 03/13/10 documented as of this encounter
--- OUTSIDE RECORDS SUMMARY | 2024-02-11 12:20 | XMS_ITS | Continuity of Care Document ---
Author Organization [place] [facility] Address [address] [place] [address] Assessment No assessment recorded. Plan of Treatment Reminders Order Date Submit Date Provider Last Modified By Organization Details Last Modified Time Details Appointments Annual Wellness Exam 30 2023 11:00A M TIERRA VINSON Not available Not available Not available Annual Wellness Exam 30 2024 02:50P M TIERRA VINSON Not available Not available Not available Lab None recorded. Referral vascular surgeon referral - office note is attached 2023 024 [facility], [facility] [place], [address], 01/09/2024 11:50:34 Procedures None recorded. Surgeries None recorded. Imaging None recorded. Medication Orders None recorded. Patient TargetsNo targets recorded. Patient InstructionsNo instructions recorded. Reason for Referral Orthopedic Surgeon Referral for Pain of left hand when visit is complete, please send us the visit notes Referring Physician: Tierra Vinson Family Medicine, Encounter Date: 08/04/2023 Vascular Surgeon Referral fo r Varicose veins of lower extremity office note is attached Referring Physician: Tierra Vinson Family Medicine, Encounter Date: 12/24/2023 Results Created Date Observation Date Name Description Value Unit Range Abnormal Flag Note LastModifiedBy Organization Detail LastModifiedTime 12/12/19 24 12/12/2023 MRI imagi ng sai t Patirobert t Name: Deangelo jaimesTonia Tolliver Unit #: [id number] Loc: DI Orderi ng Provid er: Michele Mckee M.D. Accoun t #: [id number] Status : REG CLI Primar y Care [facility] er: Bethany Villegas Date of Exam: Sex: M Admiss ion Date: : 1965 Age: 57 Exam(s ) MR UPPER JOINT LT WO EXAM: MR UPPER JOINT LT WO CLINIC AL HISTOR Y: possib le small fX, bony contus ion vs. ligame nt injury lt wrist, s69.92 xa. TECHNI QUE: Multip lanar multis equenc e MRI was perfor med. COMPAR POLA: November 11 FINDIN GS: BONES: There is no fractu re or contus ion patter n. JOINTS : Small amount of fluid versus synovi al cyst or gangli on seen at the volar, ulnar aspect of the wrist betwee n the piece of form and hamate . Additi onal fluid versus synovi al cyst or gangli on seen at the volar aspect of the radial styloi d. The carpal alignm ent is normal . TENDON S: Flexor s: Unrema rkable . Extens ors: Unrema rkable . MUSCLE S: Unrema rkable . MEDIAN NERVE: Unrema rkable on this noncon trast examin ation. SOFT TISSUE S: Unrema rkable . LIGAME NTS: Unrema rkable . TRIANG ULAR FIBROC ARTILA GE: Unrema rkable . IMPRES HEMA: No eviden ce of fractu re or bone contus ion. Small synovi al cysts versus gangli a at the volar aspect of the radius , at both the radial and ulnar aspect s. DATA REPOSI TORY: Ordere d By: Michele Mckee M.D. CC: ------ ------ ------ ------ ------ ------ ------ ------ ------ ------ ------ ------ - Dictat ed By: Sylvia Sandra [id number] [id number] Transc ribed By: Ani Khan 1508 This is privil eged, confid ential inform ation intend ed only for the provid er named. Any use or distri bution by any person other than this provid er is strict ly prohib ited. If you receiv e this report in error, please notify us shannna javier at and return the origin al report to us at the addres s above. Thank- you. [email or web address] [facility] [address], [place], [address] 12/14/2023 09:27:40 Result Notes None recorded. Problems Name Problem SNOMED Code Status Onset Date Resolution Date Notes Provider Name and Address Organization Details Recorded Time Gastroes ophageal reflux disease without esophagi tis 653775027 Active 201101/10/20 22 - Comments only - [...] K21.9; Problem Code Type: ICD-10; Not Available [facility] 3 04:01:45 Obstruct jacey sleep apnea syndrome 25398094 Active 201401/10/20 22 - Comments only - [...] G47.33; Problem Code Type: ICD-10; Not Available [facility] 3 04:01:45 Muscle pain 04567832 Active 201611/02/19 17 - Comments only - Cara Nunez delfina [employer]CH[employer] - - With erythema tous lesion, possible [...] M79.1; Problem Code Type: ICD-10; Not Available [facility] 3 04:01:45 Localize d eruption of skin 366457460 Completed 201611/15/2016 Problem Code: R21; Problem Code Type: ICD-10; Not Available [facility] 3 04:01:45 Gout 77485546 Active 2017 Problem Code: M10.9; Problem Code Type: ICD-10; Not Available [facility] 3 04:01:45 Adult health examinat ion Active 202101/10/20 22 - Comments only - Tierra Vinson MD - Imer Rogelio is a healthy active 56-year- old gentlema [...] Z00.00; Problem Code Type: ICD-10; Not Available [facility] 3 04:01:46 Vitamin D deficien cy 84521202 Active 2021 Problem Code: E55.9; Problem Code Type: ICD-10; Not Available [facility] 3 04:01:46 Exposure to communic able disease Completed 202001/09/2022 Problem Code: Z20.9; Problem Code Type: ICD-10; Not Available [facility] 3 04:01:51 Screenin g for disorder Completed 201501/09/2022 Problem Code: Z13.9; Problem Code Type: ICD-10; Not Available [facility] 3 04:01:56 Gastroes ophageal reflux disease 825791145 Completed 201101/15/2023 10/25/19 15 - Deterior gregg Martin MD - trial of increasi ng nexium to 40mg each AM, at least 1/2 hour prior to eating, follow reflux precauti ons follow-u p 2 months Not Available [facility] 3 04:01:57 Screenin g for malignan t neoplasm of colon Completed 201901/09/2022 Problem Code: Z12.11; Problem Code Type: ICD-10; Not Available [facility] 3 04:01:58 Pain of left hand 40560220061 9103 Active [address], [facility] [id number] , [facility] 4 16:09:32 Increase d frequenc y of urinatio n 342061160 Active [address], [place] [address] , [facility] 4 16:05:13 Abnormal urine 680412662 Active [address], [place] [address] , [facility] 4 16:44:03 Varicose veins of lower extremit y 24810317 Active [address], [place], [place], [address] [place] [address] , [facility] 4 10:16:50 Problem Notes None recorded. Medical Equipment None [...] 2 times per day for 10 days 12/23 completed Not Available Not Available Not Available tamsulosin 0.4 mg capsule TAKE 1 CAPSULE BY MOUTH ONCE DAILY IN THE MORNING 02/10 completed Not Available Not Available Not Available Alrex 0.2 % eye drops,suspen hema [...] mass index (BMI) Body weight Body temperature Heart rate Oxygen saturation Oxygen saturation in Arterial blood by Pulse oximetry Respiratory rate Systolic blood pressure Diastolic blood pressure Provider Name and Address Organization Details Last Updated DateTime 4 180.848 cm 30.6 kg/m2 428476. 2 g 96.9 [degF] 74 /min 97 % 97 % 16 /min 122 mm[Hg] 80 mm[Hg] LORENZA MCLEOD CMA [place] [facility]. 4 10:06:27 Social History Question Answer Notes LastModified by Organizat ion Details LastModified Time Tobacco Smoking Status Never Smoker LORENZA MCLEOD, PHOTOGRAPH DEVELOPER null, [place] [facility]. 12/24/2023 10:08:54 Date Of Most Recent SBINS 02/11/2024 Information not available 02/11/2024 What Was The Date Of Your Most Recent Tobacco Screening? 02/11/2024 Information not available 02/11/2024 Do You Or Have You Ever Used Any Other Forms Of Tobacco Or Nicotine? No [email or web address] Information not available 12/24/2023 Sex: Male Functional Status None recorded. Mental Status None recorded. Family History Relationship Description Onset Age of this Age Resolved Age Notes LastModified by Organization Details LastModified Time Father Family history of acute medical disorder GERD [email or web address] Not available 2022 04:00:50 Mother Family history of Arthritis [email or web address] Not available 2022 04:00:50 Notes:*Problem: mother - ali ve age 78 [...] Recorded Time Tdap 02/19/2021 completed Not Available [facility] 05:56:43 COVID-19, mRNA, LNP-S, PF, 100 mcg/0.5mL dose or 50 mcg/0.25mL dose 10/12/2020 completed Not Available [facility] 02/28/2023 05:56:47 COVID-19, mRNA, LNP-S, PF, 100 mcg/0.5mL dose or 50 mcg/0.25mL dose 11/09/2020 completed Not Available [facility] 02/28/2023 05:56:47 Past Encounters Encounter ID Performer Location Encounter Start Date Encounter Closed Date Diagnosis/Indication Diagnosis SNOMED-CT Code Diagnosis ICD10 Code [id number] TIERRA VINSON MD [address] [address] 12/24/2023 09:55:04 12/24/2023 10:22:31 Varicose veins of lower extremity 13873735 I83.891 Health Concerns Section Related Observation LastModified by Organization Detai ls LastModified Time None Recorded Concern Status LastModified by Organization Details LastModified Time None Recorded Payers Encounter Date Sequence Insurance Name Policy Number Policy Blair Covered Member ID Blair Member ID Guarantor Name 12/24/2023 1 [facility] [id number] Imer Mercado [id number] Imer Mercado Notes Date Note Type Note Provider Name and Address Organization Details Recorded Time 12/24/2023 text/html HPI Notes: Imer is a 57-year-old gentleman who has a large varicose vein across the right nicholson he states that is gotten bigger and is beginning to be uncomfortable is not uncomfortable all the time but there are times when it is quite uncomfortable he like to have something done about it. He does not get any ankle swelling TIERRA VINSON MD [address], [place], [address], [facility]. 12/24/2023 11:56:37
--- OUTSIDE RECORDS SUMMARY | 2024-02-11 12:21 | XMS_ITS | Encounter Summary ---
Author Organization [facility] Address [address] [place] [address] Care Team Providers Care Ux Architect Name Role Phone Unavailable Primary Care Provider Unavailabl e Encounter Details Date Type Department Care Team (Latest Contact Info) Description 08/10/2013 11:00 EDT - 08/10/2013 23:59 EDT Hospital Encounter [address] [address] Unknown, Provider, Discharge Disposition: Home or Self Care Social History Tobacco Use Types Packs/Day Years Used Date Smoking Tobacco: Never Assessed Sex and Gender Information Value Date Recorded Sex Assigned at Not on file Gender Identity Not on file Sexual Orientation Not on file documented as of this encounter Discharge Disposition Disposition Code Departure Means Destination Home or Self Skilled Nursing documented in this encounter Plan of Treatment Not on file documented as of this encounter Visit Diagnoses Not on filedocumented in this encounter
--- OUTSIDE RECORDS SUMMARY | 2024-02-11 12:21 | XMS_ITS | Encounter Summary ---
Author Organization [facility] Address [address] [place] [address] Care Team Providers Care Soa Engineer Name Role Phone Unavailable Primary Care Provider Unavailabl e Encounter Details Date Type Department Care Team (Late st Contact Info) Description 01/03/2022 Lab Requisition [facility] Pathology & Laboratory Medicine - [facility] [address] [place], [place] [id number] Outr Resulting Lab, Provider Social History Tobacco [...] PSA 3.0 <=3.5 ng/mL 01/03/2022 19:[address] [facility] Blood VENOUS BLOOD / Unknown 01/02/2022 8:25 EDT 01/03/2022 17:21 EDT [address] [facility] - 01/03/2022 19:40 EDT NOTE: Serum PSA concentration should not be interpreted as absolute evidence for the presence or absence of malignant disease. Assayed on Siemens ADVIA GROUND[employer]aur XPT using chemiluminescent technology.??Values obtained by using different assay methods cannot be used interchangeably. Provider Outr Resulting Lab CHEMISTRY & BLOOD GAS ORDERABLES [facility] [address] [place] [address] documented in this encounter Visit Diagnoses Not on filedocumented in this encounter
--- OUTSIDE RECORDS SUMMARY | 2024-02-11 12:21 | XMS_ITS | Clinical Summary ---
Author Organization [facility] Address [address] [place] [address] Care Team Providers Care Head Porter Baggage Name Role Phone Unavailable Primary Care Provider Unavailabl e Social History Tobacco Use Types Packs/Day Years Used Date Smoking Tobacco: Never Assessed Sex and Gender Information Value Date Recorded Sex Assigned at Not on file Gender Identity Not on file Sexual Orientation Not on file Plan of Treatment Health Maintenance Due Date Last Done Comments Hepatitis C Screen 1965 Hepatitis B Vaccine (1 of 3 - 19+ 3-dose series) 12/27 COVID-19 Vaccine (2023- season) 2023
--- OUTSIDE RECORDS SUMMARY | 2024-02-11 12:21 | XMS_ITS | Encounter Summary ---
Author Organization [facility] Address [address] [place] [address] Care Team Providers Care Dishwasher Preparer Name Role Phone Unavailable Primary Care Provider Unavailabl e Encounter Details Date Type Department Care Team (Late st Contact Info) Description 07/29/2001 Results Only [facility] - [place] conversion [address] [place] [address] Art Butcher MD [address] [place] [id number] Social History Tobacco Use Types Packs/Day Years [...] ? CORY MERCADO ? Accession #: ? [id number] ? : ? 1965 (Age: 35) ??M [...] MD PATHOLOGY ORDERABLES [facility] [address] [place] [address] documented in this encounter Visit Diagnoses Not on filedocumented in this encounter
--- OUTSIDE RECORDS SUMMARY | 2024-02-11 12:21 | XMS_ITS | Encounter Summary ---
Author Organization [facility] Address [address] [place] [address] Care Team Providers Care Fur Blower Operator Name Role Phone Unavailable Primary Care Provider Unavailabl e Encounter Details Date Type Department Care Team (Late st Contact Info) Description 08/22/2020 Lab Requisition [facility] Pathology & Laboratory Medicine - [facility] [address] [place], [place] [address] Outr Resulting Lab, Provider Social History Tobacco [...] Priority Date/Time Associated Diagnosis Comments ZZCOVID-19 TEST [facility] PCR Today 08/21/2020 14:20 EDT COVID-19 TESTING Routine 08/21/2020 14:2 0 EDT documented in this encounter Results * COVID-19 TEST [facility] PCR (08/21/2020 14:20 EDT) Swab ENTIRE NASOPHARYNX / Unknown 08/21/2020 14:20 EDT 08/22/2020 16:03 EDT Provider Outr Resulting Lab MICROBIOLOGY - GENERAL ORDERABLES [facility] [address] [place] [address] * COVID-19 TESTING (08/21/2020 14:20 EDT) COVID-19 rt-PCR Result Negative Negative 08/23/2020 13:03 EDT [facility] Comment: This test has not [...] was performed using the kate SARS-CoV-2 assay (Tegan Float: [employer] on the Kate 6800 System Performing Lab Kate [address] [facility] Lab 08/23/2020 13:03 EDT [facility] Swab 08/21/2020 14:2 0 EDT 08/22/2020 16:03 EDT Provider Outr Resulting Lab MICROBIOLOGY - GENERAL ORDERABLES [facility] [address] [place] [address] documented in this encounter Visit Diagnoses Not on filedocumented in this encounter
--- OUTSIDE RECORDS SUMMARY | 2024-02-11 12:21 | XMS_ITS | Encounter Summary ---
Author Organization Health system Address [address] [place] [address] Care Team Providers Care Design Leader Name Role Phone Unavailable Primary Care Provider Unavailabl e Encounter Details Date Type Department Care Team (Late st Contact Info) Description 08/10/2013 Results Only [facility]- [facility] [phone] Harry Mack MD [address] [facility] [address] [place] [address] Social History Tobacco Use Types [...] ? CORY MERCADO ? Accession #: ? [id number] ? : ? 1965 (Age: 47) ??M [...] Mack MD PATHOLOGY ORDERABLES Performing Organization Address City/State/[facility] Co de Phone Number [facility] [address] [place] [address] documented in this encounter Visit Diagnoses Not on filedocumented in this encounter
--- OUTSIDE RECORDS SUMMARY | 2024-02-11 12:21 | XMS_ITS | Encounter Summary ---
Author Organization [facility] Address [address] [place] [address] Care Team Providers Care Dentures Lab Technician Name Role Phone Unavailable Primary Care Provider Unavailabl e Encounter Details Date Type Department Care Team (Late st Contact Info) Description 09/27/[address] [facility] Pathology & Laboratory Medicine - [facility] [address] [place], [place] [id number] Outr Resulting Lab, Provider Social History Tobacco [...] PSA 2.9 <=3.5 ng/mL 09/29/2023 9:15 EDT [facility] Blood VENOUS BLOOD / Unknown 09/26/2023 15:00 EDT 09/27/2023 21:56 EDT Narrative [facility] - 09/29/2023 9:15 EDT NOTE: Serum PSA concentration should not be interpreted as absolute evidence for the presence or absence of malignant disease. Assayed on Siemens ADVIA Food[employer]aur XPT using chemiluminescent technology.??Values obtained by using different assay methods cannot be used interchangeably. Provider Outr Resulting Lab CHEMISTRY & BLOOD GAS ORDERABLES [facility] [address] [place] [address] documented in this encounter Visit Diagnoses Not on filedocumented in this encounter
--- OUTSIDE RECORDS SUMMARY | 2024-02-11 12:21 | XMS_ITS | Referral Summary ---
Author Organization [facility] Address [address] [place] [address] Care Team Providers Care Glass Cleaner Name Role Phone Unavailable Primary Care Provider Unavailabl e Social History Tobacco Use Types Packs/Day Years Used Date Smoking Tobacco: Never Assessed Sex and Gender Information Value Date Recorded Sex Assigned at Not on file Gender Identity Not on file Sexual Orientation Not on file Plan of Treatment Not on file
[2024-02-11 15:17] LABS: HCT 48.7 % (40.0-50.0); HGB 16.7 g/dL (13.5-17.5); MCH 30.3 pg (27.0-33.0); MCHC 34.3 % (32.0-36.0); MCV 88 fL (80-95); MPV 9.9 fL (8.0-11.0); Platelet Count 275 10^3/uL (130-400); RBC 5.52 10^6/uL (4.36-5.78); RDW 12.2 % (11.8-14.1); RDW-SD 40.1 fL; WBC 6.03 10^3/uL (4.4-10.8)
[2024-02-11 15:43] LABS: ALT 43 U/L (16-63); AST 24 U/L (15-37); Albumin 4.3 g/dL (3.4-5.0); Alkaline Phosphatase 86 U/L (46-116); Anion Gap 11.2 mmol/L (3-11); BUN 19 mg/dL (7-18); Bilirubin, Total 0.98 mg/dL (0.2-1.0); CO2 28.8 mmol/L (21.0-32.0); Calcium 9.6 mg/dL (8.5-10.1); Calculated LDL 123 mg/dL (<100); Chloride 104 mmol/L (98-107); Cholesterol 199 mg/dL (<200); Estimated GFR 88.33 (mL/min/1.73m2); Glucose 98 mg/dL (74-106); HDL Cholesterol 51 mg/dL (40-60); Potassium 4.3 mmol/L (3.5-5.1); Sodium 144 mmol/L (136-145); Total Protein 7.6 g/dL (6.4-8.2); Triglyceride 126 mg/dL (<150); Vitamin D 25 Total 33.6 ng/mL (30-100)
[2024-02-11 22:54] LABS: PSA, Diagnostic 3.3 ng/mL (<=3.5)
== END 2024-02-11 12:18 | disposition home or self-care (01) ==
LOC: NCHCN 12:17
PROVIDERS: PCP Nurse Practitioner Family; Visit Provider Family Medicine
DX: G47.33 Obstructive sleep apnea (adult) (pediatric) (principal); Z00.00 Encounter for general adult medical examination without abnormal findings; E55.9 Vitamin D deficiency, unspecified
CPT/HCPCS: 80053; 80061; 82306; 85027; 84153